=== PATIENT | male | born 1970 | race Caucasian/White ===

== ENCOUNTER 2022-04-14 16:54 | Observation (INO) ==
[2022-04-14 18:22] LABS: Basophils # 0.1 K/mcL (0.0-0.2); Basophils % 1.1 %; Eosinophils # 0.2 K/mcL (0.0-0.6); Eosinophils % 2.9 %; Hemoglobin 13.5 g/dL (12.9-16.9); Immature Granulocytes % 0.3 % (0-4); Lymphocytes # 2.2 K/mcL (0.6-4.6); Lymphocytes % 33.2 %; Mean Corpuscular HGB Conc 33.8 g/dL (31.6-35.5); Mean Corpuscular Hemoglobin 33.2 pg (28.0-33.3); Mean Corpuscular Volume 98.3 fL (83.0-100.0); Mean Platelet Volume 8.8 fL (9.4-12.4); Monocytes # 0.6 K/mcL (0.0-1.3); Monocytes % 8.9 %; Neutrophils # 3.5 K/mcL (1.6-8.9); Platelet Count 199 K/mcL (140-400); Red Blood Count 4.07 M/mcL (4.19-5.50); Red Cell Distribution Width 12.7 % (11.5-14.5); Segmented Neutrophils % 53.6 %; White Blood Count 6.5 K/mcL (4.3-11.1)
[2022-04-14 18:30] LABS: INR 0.9; Prothrombin Time 10.4 Seconds (9.4-12.1)
[2022-04-14 18:32] LABS: Activated Partial Thrombo Time 29.8 Seconds (26.0-36.0)
[2022-04-14 18:42] LABS: BUN/Creatinine Ratio 24 (6-26); Blood Urea Nitrogen 23 mg/dL (6-20); Carbon Dioxide 26 mEq/L (23-29); Chloride 107 mEq/L (98-107); Glucose 84 mg/dL (70-105); Osmolality,Calculated 289 (280-300); Potassium 4.6 mEq/L (3.5-5.1); Sodium 138 mEq/L (136-145); eGFR For African Americans > 60 (> 60); eGFR For Non-African Americans > 60 (> 60)
[2022-04-14 18:43] LABS: Troponin I < 0.03 ng/mL (< 0.04)
[2022-04-14] MEDS ORDERED: Nitroglycerin 0.4 MG TAB.SUBL SL PRN (20:38)
[2022-04-14 21:17] LABS: Magnesium 1.9 mg/dL (1.6-2.6)
[2022-04-14 21:30] LABS: Thyroid Stimulating Hormone 1.873 mcIU/mL (0.340-5.600)
[2022-04-14] MEDS ORDERED: Acetaminophen 325 MG TABLET PO PRN (22:17)
[2022-04-14] MEDS ORDERED: Naloxone 0.4 MG/ML INJ IVP PRN (22:17)
[2022-04-14] MEDS ORDERED: Ondansetron 4 MG/2 ML VIAL IVP PRN (22:17)
[2022-04-14] MEDS ORDERED: Melatonin 3 MG TABLET PO PRN (22:17)
[2022-04-15] MEDS ORDERED: Regadenoson 0.4 MG/5 ML SYRINGE IVP ONE (06:18)
[2022-04-15 08:06] LABS: Basophils # 0.1 K/mcL (0.0-0.2); Basophils % 0.7 %; Eosinophils # 0.1 K/mcL (0.0-0.6); Eosinophils % 2.1 %; Hematocrit 40.7 % (37.5-50.1); Hemoglobin 13.5 g/dL (12.9-16.9); Immature Granulocytes % 0.3 % (0-4); Lymphocytes # 1.5 K/mcL (0.6-4.6); Lymphocytes % 21.8 %; Mean Corpuscular HGB Conc 33.2 g/dL (31.6-35.5); Mean Corpuscular Hemoglobin 32.2 pg (28.0-33.3); Mean Corpuscular Volume 97.1 fL (83.0-100.0); Mean Platelet Volume 9.3 fL (9.4-12.4); Monocytes # 0.4 K/mcL (0.0-1.3); Monocytes % 6.3 %; Neutrophils # 4.7 K/mcL (1.6-8.9); Platelet Count 201 K/mcL (140-400); Red Blood Count 4.19 M/mcL (4.19-5.50); Red Cell Distribution Width 12.6 % (11.5-14.5); Segmented Neutrophils % 68.8 %; White Blood Count 6.8 K/mcL (4.3-11.1)
[2022-04-15 08:14] LABS: INR 0.9; Prothrombin Time 10.5 Seconds (9.4-12.1)
[2022-04-15 08:15] LABS: BUN/Creatinine Ratio 26 (6-26); Blood Urea Nitrogen 21 mg/dL (6-20); Calcium 9.1 mg/dL (8.6-10.3); Carbon Dioxide 25 mEq/L (23-29); Chloride 107 mEq/L (98-107); Chol/HDL Ratio 3.1 (0-4.9); Cholesterol 193 mg/dL (< 200); Glucose 88 mg/dL (70-105); HDL Cholesterol 63 mg/dL (40-59); LDL Cholesterol,Calculated 107 mg/dL (< 100); Magnesium 1.8 mg/dL (1.6-2.6); Osmolality,Calculated 290 (280-300); Potassium 4.3 mEq/L (3.5-5.1); Sodium 139 mEq/L (136-145); Triglycerides 117 mg/dL (< 150); eGFR For African Americans > 60 (> 60); eGFR For Non-African Americans > 60 (> 60)
[2022-04-15] MEDS ORDERED: Iopamidol - 370 500 ML MLS IVP ONE (11:46)
[2022-04-15] MEDS ORDERED: Nitroglycerin 0.4 MG TAB.SUBL SL PRN ×2 (11:56)
[2022-04-15] MEDS: *HR* Heparin 5,000 UNIT/ML VIAL SQ SCH ×2 (14:09→22:16)
[2022-04-16] MEDS: *HR* Heparin 5,000 UNIT/ML VIAL SQ SCH ×2 (06:04→15:01)
[2022-04-16 07:02] VITALS: O2SAT 96
[2022-04-16 16:03] VITALS: BP 107/56; PULSE 58; TEMP 97.8
[2022-04-16] MEDS ORDERED: Doxycycline 100 MG CAPSULE PO SCH (21:00)
== END 2022-04-16 17:35 | disposition short-term general hospital (02) ==
LOC: EMEROOARM 16:54 → 2NENU 16:54 → SUATTDRO 21:35 → 2NENU 22:19
PROVIDERS: ADMIT Internal Medicine; ATTEND Internal Medicine